=== PATIENT | male | born 1995 | race Caucasian/White ===

== ENCOUNTER 2016-09-04 13:44 | Emergency (ER) | payer BC ==
--- NOTE | ~2016-09-04 | CR142 ---
[facility]. [facility] A Service of [facility] & [facility] RADIOLOGY TEXT RESULTS PATIENT: JENAE GALLO JR LOCATION: SED : [birth year] UNIT #: [id number] AGE: [address]: CAROLINA BENAVIDES SEX: M ORDER DR: [id number] [place] [address] [id number] MR#: [id number] Acc #: [id number] NAME: JENAE GALLO JR : 1995 SEX: M STUDY DATE/TIME: 09/04/2016 14:27 UNIT: SED ROOM: STUDY DESCRIPTION: CR Hand Min 3 Views Rt Attending Physician: Carolina Benavides Ordering Physician: Carolina Benavides Primary Care Physician: No Primary Care Physician MEDICAL IMAGING REPORT This report is preliminary unless electronic signature is present. EXAM Hand, 3 views, right. HISTORY Injury and pain right hand for 3 days, hand pain, wrist pain, pinky pain. COMMENT Three views of the right hand are reviewed. No comparison. See separate separate films of the right wrist. There is no acute fracture, dislocation or radiopaque foreign body. IMPRESSION Negative plain film assessment of right hand. Dictated by... Meli Thomason M.D. THIS IS AN ELECTRONICALLY VERIFIED REPORT Meli Thomason M.D. at 09/06/2016 8:41 AM MIKE/marilu TD: 09/05/2016 09:26 JOB #: [id number] MEDICAL IMAGING REPORT Page 1 of 1
--- NOTE | ~2016-09-04 | CR282 ---
[facility]. [facility] A Service of [facility] & [facility] RADIOLOGY TEXT RESULTS PATIENT: JENAE GALLO JR LOCATION: SED : [birth year] UNIT #: [id number] AGE: [address]: CAROLINA BENAVIDES SEX: M ORDER DR: [id number] [place] [address] [id number] E MR#: [id number] Acc #: [id number] NAME: JENAE GALLO JR : 1995 SEX: M STUDY DATE/TIME: 09/04/2016 14:27 UNIT: SED ROOM: STUDY DESCRIPTION: CR Wrist Min 3 View Rt Attending Physician: Carolina Benavides Ordering Physician: Carolina Benavides Primary Care Physician: Primary Care Physician No MEDICAL IMAGING REPORT This report is preliminary unless electronic signature is present. EXAM Right wrist three-view study HISTORY Pain in the right wrist for 3 days since an injury. COMMENT Three-views left wrist reviewed. No comparison. There is a separate dictation of the hand. There is no acute fracture, dislocation or radiopaque foreign body. IMPRESSION 1. Negative plain film assessment right breast. Dictated by... Meli Thomason M.D. THIS IS AN ELECTRONICALLY VERIFIED REPORT Meli Thomason M.D. at 09/06/2016 8:41 AM MIKE/jasper TD: 09/05/2016 09:24 JOB #: [id number] MEDICAL IMAGING REPORT Page 1 of 1
[~2016-09-04 13:44] MED LIST: IBUPROFEN800 MG PO; NO MEDICATIONS
== END 2016-09-04 16:26 | disposition home or self-care (01) ==
LOC: SED 13:44
DX: S63.501A Unspecified sprain of right wrist, initial encounter (principal); S63.616A Unspecified sprain of right little finger, initial encounter; R03.0 Elevated blood-pressure reading, without diagnosis of hypertension; F17.210 Nicotine dependence, cigarettes, uncomplicated; X58.XXXA Exposure to other specified factors, initial encounter; Y93.44 Activity, trampolining
CPT/HCPCS: 29280; 73110; 73130; 99283